=== PATIENT | female | born 1965 | race Caucasian/White ===

== ENCOUNTER → 2016-07-03 08:05 | Outpatient (CLI) | payer MEDICARE | END | disposition home or self-care (01) | LOC: D.CT 08:05 | DX: D3A.010 Benign carcinoid tumor of the duodenum (principal) ==

== ENCOUNTER → 2016-07-08 07:31 | Outpatient (CLI) | payer MEDICARE | END | disposition home or self-care (01) | LOC: D.NM 07:31 | DX: D3A.010 Benign carcinoid tumor of the duodenum (principal) ==